=== PATIENT | male | born 1940 | race Caucasian/White ===

== ENCOUNTER → 2019-07-02 10:35 | Day surgery (SDC) | payer MEDICARE, BC ==
[~2019-07-02 10:35] MED LIST: Lidocaine 1% INJ* 10 MG/ML 30 ML SDV ONE; Lidocaine 2.5%/Prilocain 2.5%* 5 GM TUBE ONE
--- NOTE | 2019-07-02 21:24 | PRO ---
THORACENTESIS REPORT: DATE OF PROCEDURE: 07/02/19 - SDS REASON FOR PROCEDURE: Recurrent pleural effusion, left lung. Briefly, a 79-year-old male with a history of systolic CHF EF 45% with pacemaker; history of paroxysmal atrial fibrillation, on Eliquis and digitalis previously. PROCEDURE: Elective left thoracentesis. The patient has had multiple effusions in left and right side which both have been transudative with negative cytology. The patient has had pleurodesis in the right lung. DESCRIPTION OF PROCEDURE: Informed consent was obtained. Benefits and risks of procedure were explained. The patient's left fifth midaxillary intercostal space was prepped and draped in a sterile fashion. The patient was given topical lidocaine. Time-out was performed. Needle was inserted. We did receive some serous fluid. Incision was made with an 11 scalpel. Thoracentesis needle was inserted. The sheath was advanced. We obtained yellowish serous fluid. Later, it was hooked up to the Vacutainer. We received about 1900 cc of serous colored fluid. At the end, there was some bloody fluid that came out. The patient tolerated the procedure well. We terminated the procedure once the patient started having discomfort, indicating increased pleural pressure. Later on, we did a chest x-ray postprocedure, which showed a small subpulmonic air on the left side. The etiology could be procedure related. Etiology could be also possibly a trapped lung; however, unlikely since the effusion was transudative. At this time, I have spoken to the patient and also I have gone to the ER and spoken to the ER attending charge nurse. I have told them right now that the patient should be placed on nonrebreather mask. Chest x-ray should be repeated in 4 hours after the patient is on a high amount of oxygen. With the chest x-ray, if pneumothorax has resolved, then the patient could be discharged home. If the pneumothorax is the same size or bigger, obviously the patient will have to be admitted to the hospital. If the pneumo-thorax is getting bigger, the patient may need a chest tube. If it is the same size, I think the patient should probably be admitted to the hospital overnight with a high amount of oxygen and x-ray should be repeated in the morning. Otherwise, also if the pneumothorax is not going away, then the patient will probably need a CT scan of the chest to further evaluate the pleura. [id number]/[facility] #: [id number] [facility]
== END | disposition home or self-care (01) ==
LOC: OR 10:35
PROVIDERS: ATTEND Internal Medicine
DX: J90 Pleural effusion, not elsewhere classified (principal); I50.9 Heart failure, unspecified; Z95.0 Presence of cardiac pacemaker; I48.0 Paroxysmal atrial fibrillation; Z79.01 Long term (current) use of anticoagulants; Z87.891 Personal history of nicotine dependence; R06.00 Dyspnea, unspecified; R05 Cough; R91.8 Other nonspecific abnormal finding of lung field
CPT/HCPCS: 32554; 71045; 88112; A9270-GY

== ENCOUNTER 2019-07-02 13:08 | Observation (INO) | payer MEDICARE, BC ==
--- OUTSIDE RECORDS SUMMARY | 2019-07-02 13:18 | XMS REPORT | Continuity of Care Document ---
:1940 External Reference #:[id number] Author Name Laci Soto MD (transmitted by agent of provider Madelyn Mendez) Address [address], [address] [place] [address] Problems Description No Information Available Social History Type Date Description Comments Sex Unknown Cigarette Use Pack Years - 02 Tobacco Use Start: Unknown End: Former Cigarette Smoker Unknown 5-10 Cigarettes Daily Smoking Status Reviewed: 06/27/19 Former Cigarette Smoker 5-10 Cigarettes Daily ETOH Use Currently consumes alcohol Tobacco Use Start: Unknown End: Patient is a former Unknown smoker Exercise Does not exercise Due to breathing Type/Frequency issues Allergies, Adverse Reactions, Alerts Description No Known Drug Allergies Medications Active Medications SIG Qnty Indications Ordering Provider Date Eliquis 1 by mouth twice Unknown 5mg Tablets a day Klor-Con 10 1 by mouth every Unknown 10Meq Tablets day ER Lasix 1 by mouth prn Unknown 40mg Tablets Multivitamin Adult 1 po daily Unknown Immunizations Description No Information Available Vital Signs Date Vital Result Comment 06/27/2019 8:56am Height 70 inches 5'10" Weight 154.00 lb Heart Rate 82 /min BP Systolic Sitting 110 mmHg Rue regular cuff BP Diastolic Sitting 50 mmHg Rue regular cuff Respiratory Rate 16 /min O2 % BldC Oximetry 96 % BMI (Body Mass Index) 22.1 kg/m2 Neck Circumference in inches 14.4 Results Description No Information Available Procedures Description No Information Available Medical Devices Description No Information Available Encounters Description No Information Available Assessments Date Code Description Provider 06/27/2019 R06.00 Dyspnea, unspecified Laci Soto MD 06/27/2019 R05 Cough Laci Soto MD 06/27/2019 R91.8 Other nonspecific abnormal finding of lung field Laci Soto MD Plan of Treatment Future Appointment(s):07/04/2019 10:00 am - Dane Anna DO [facility] at [facility]06/27/2019 - Laci Soto, MDR06.00 Dyspnea, unspecifiedNew Xrays:Chest PA & Lat 2 VWS, Ordered: 06/27/19New Orders:PFTW/Spirometry Vol Pre/Post Bronchdilat Dlco Complete, Scheduled: 196 Minute Walk, Ordered: 06/27/19Comments:We will get objective data we will repeat a chest x-ray we will also get 6 minute walk and we will also get full probably function test.R05 QmphyD27.8 Other nonspecific abnormal finding of lung fieldComments: continue to monitor we may need to repeat thoracentesis on the left lung. He may need a pleurodesis on the left lung. Functional Status Description No Information Available Mental Status Description No Information Available Referrals Description No Information Available
--- OUTSIDE RECORDS SUMMARY | 2019-07-02 13:18 | XMS REPORT | Continuity of Care Document ---
:1940 External Reference #:[id number] Author Name Cristin Torres Description No Information Available Social History Type Date Description Comments Sex Unknown Allergies, Adverse Reactions, Alerts Description No Information Available Medications Description No Information Available Immunizations Description No Information Available Vital Signs Description No Information Available Results Description No Information Available Procedures Description No Information Available Medical Devices Description No Information Available Encounters Description No Information Available Assessments Description No Information Available Plan of Treatment Future Appointment(s):07/04/2019 10:00 am - Dane Anna DO [facility] at [facility] Functional Status Description No Information Available Mental Status Description No Information Available Referrals Description No Information Available
--- OUTSIDE RECORDS SUMMARY | 2019-07-02 13:18 | XMS REPORT | Continuity of Care Document ---
:1940 External Reference #:[id number] Author Name Cristin Torres Description No Information [...] am - Dane Anna DO [facility] at [facility] Functional Status Description No Information Available Mental Status Description No Information Available Referrals Description No Information Available
--- OUTSIDE RECORDS SUMMARY | 2019-07-02 13:18 | XMS REPORT | Continuity of Care Document ---
:1940 External Reference #:[id number] Author Name Cristin Torres Description No Information [...] am - Dane Anna DO [facility] at [facility] Functional Status Description No Information Available Mental Status Description No Information Available Referrals Description No Information Available
--- NOTE | 2019-07-02 13:33 | ED ---
HPI Cardiac - HPI Summary HPI Summary: Pt is a 79 y/o M presenting to the ED brought in from the PAC unit. He was having thoracentesis done to drain fluid from his lungs and a CXR showed that he had a PTX, so he was sent here for further evaluation. Pt currently has no complaints, denying CP and SOB. - History of Current Complaint Chief Complaint: EDGeneral Stated Complaint: AIR UNDER LUNG PER PT Time Seen by Provider: 07/02/19 13:11 Hx Obtained From: Patient Onset/Duration: Started Hours Ago, Still Present Timing: Constant, Lasting Hours Initial Severity: Mild Current Severity: None Pain Intensity: 0 Pain Scale Used: 0-10 Numeric Aggravating Factor(s): Other: - thoracentesis Alleviating Factor(s): Nothing Associated Signs and Symptoms: Negative: Chest Pain, Shortness of Breath - Allergy/Home Medications Allergies/Adverse Reactions: Allergies Allergy/AdvReac Type Severity Reaction Status Date / Time No Known Allergies Allergy Verified 07/02/19 13:12 Home Medications: Home Medications Apixaban* [Eliquis*] 5 mg PO BID 07/02/19 [History Confirmed 07/02/19] Furosemide TAB* [Lasix TAB*] 20 mg PO DAILY 07/02/19 [History Confirmed 07/02/19 ] Multivitamins/Minerals TAB* [Theragran/minerals TAB*] 1 tab PO DAILY 07/02/19 [ History Confirmed 07/02/19] Potassium Chlor TAB* [Klor Con ER TAB*] 10 meq PO DAILY 07/02/19 [History Confirmed 07/02/19] PMH/Surg Hx/FS Hx/Imm Hx Previously Healthy: Yes Endocrine/Hematology History: Denies: Hx Diabetes Cardiovascular History: Reports: Hx Pacemaker/ICD - 2018 Denies: Hx Hypertension Respiratory History: Reports: Hx Pleural Effusion Infectious Disease History: No Infectious Disease History: Denies: Traveled Outside the [place] in Last 30 Days - Family History Known Family History: Negative: Diabetes - Social History Alcohol Use: Occasionally Hx Substance Use: No Substance Use Type: Reports: None Hx Tobacco Use: Yes Smoking Status (MU): Former Smoker Review of Systems Negative: Chest Pain Negative: Shortness Of Breath All Other Systems Reviewed And Are Negative: Yes Physical Exam - Summary Physical Exam Summary: Constitutional: Well-developed, Well-nourished, Alert. (-) Distressed Skin: Warm, Dry HENT: Normocephalic; Atraumatic Eyes: Conjunctiva normal Neck: Musculoskeletal ROM normal neck. (-) JVD, (-) Stridor, (-) Tracheal deviation Cardio: Rhythm regular, rate normal, Heart sounds normal; Intact distal pulses; Radial pulses are 2+ and symmetric. (-) Murmur Pulmonary/Chest wall: Pleural friction rub over entire L lung field. (-) Respiratory distress, (-) Wheezes, (-) Rales Abd: Soft, (-) tenderness, (-) Distension, (-) Guarding, (-) Rebound Musculoskeletal: (-) Edema Lymph: (-) Cervical adenopathy Neuro: Alert, Oriented x3 Psych: Mood and affect Normal Triage Information Reviewed: Yes Vital Signs On Initial Exam: Initial Vitals Temp Pulse Resp BP Pulse Ox 97.8 F 85 18 119/92 97 07/02/19 13:10 07/02/19 13:10 07/02/19 13:10 07/02/19 13:10 07/02/19 13:10 Vital Signs Reviewed: Yes Procedures - Sedation Patient Received Moderate/Deep Sedation with Procedure: No Diagnostics - Vital Signs Vital Signs Temp Pulse Resp BP Pulse Ox 07/02/19 13:10 97.8 F 85 18 119/92 97 - Laboratory Lab Statement: Any lab studies that have been ordered have been reviewed, and results considered in the medical decision making process. - Radiology CXR Radiology Interpretation Completed By: Radiologist Summary of Radiographic Findings: Hyperinflated lung price. Overall no changes noted since previous exam of earlier the same day with small left subpulmonic pneumothorax. ED physician has reviewed this report. Re-Evaluation - Re-Evaluation 1st re-eval Re-Evaluation Time: 15:38 Change: Improved Comment: Pt feels much better. He is asymptomatic. Disposition - Course Course Of Treatment: Patient is here with a small left pneumothorax following a thoracentesis. Patient was asymptomatic upon arrival. Patient is given high flow oxygen and had a repeat chest x-ray at 4 hours which showed no change in the pneumothorax. Per plan discussed with pulmonolgist, patient was admitted overnight for further observation - Diagnoses Provider Diagnoses: Pneumothorax, left - Physician Notifications Discussed Care Of Patient With: Marizol Zhang Time Discussed With Above Provider: 17:10 Instructed by Provider To: Admit As Inpatient Discharge ED - Sign-Out/Discharge Documenting (check all that apply): Patient Departure - Discharge Plan Condition: Stable Disposition: ADMITTED TO [facility] Referrals: [facility] [Outside] - Billing Disposition and Condition Condition: STABLE Disposition: Admitted to [facility] - Attestation Statements Document Initiated by Scribe: Yes Documenting Scribe: Mitali Valdes Provider For Whom Scribe is Documenting (Include Credential): Lexa Ocasio MD. Scribe Attestation: Mitali Akhtar, yaniraed for Lexa Ocasio MD. on 07/02/19 at 1859. Scribe Documentation Reviewed: Yes Provider Attestation: The documentation as recorded by the lauroibMitali brasher accurately reflects the service I personally performed and the decisions made by , Lexa Ocasio MD. Status of Scribe Document: Viewed
[2019-07-02] MEDS ORDERED: Acetaminophen TAB* 325 MG PO PRN (18:28)
--- NOTE | 2019-07-02 22:25 | HP ---
CC: Dr. Soto * HISTORY AND PHYSICAL: DATE OF ADMISSION: 07/02/19 PROVIDER: Hermelinda Moody NP. PRIMARY CARE PROVIDER: Dr. Amor Snyder [place], [place]. ATTENDING PHYSICIAN WHILE IN THE HOSPITAL: Dr. Eligio Colvin * (dictated by Hermelinda Moody NP). CHIEF COMPLAINT: Pneumothorax. HISTORY OF PRESENT ILLNESS: Mr. Langston is a 79-year-old male with a past medical history significant for dyspnea, questionable diastolic congestive heart failure with preserved ejection fraction, atrial fibrillation, history of CVA in 2003, who presented to the emergency room after a thoracentesis. The patient had a thoracentesis today with Dr. Soto. Post procedure chest x-ray showed a small left pneumothorax. He was sent to the emergency room for observation and repeat chest x- ray. Repeat chest x-ray at [facility] again showed the small left pneumothorax. So, Hospital Medicine was contacted for admission. The patient reports that he has been getting thoracenteses every 3 to 6 weeks for left pleural effusion of unclear etiology. The patient has been told that his pleural effusion could be likely due to diastolic congestive heart failure. At this time, the patient denies any acute shortness of breath. He does report a chronic loose cough. He denies any fever, chills, unintended weight loss, chest pain or edema. He denies any nausea, vomiting, diarrhea, abdominal pain, hematuria, dysuria, focal weakness or sensory loss. Denies any visual complaints, dysphagia, arthralgias, myalgias, rashes, lesions , open sores, psychosis or anxiety. PAST MEDICAL HISTORY: Significant for: 1. Dyspnea. 2. Diastolic congestive heart failure with preserved ejection fraction. The patient reports ejection fraction of 55% from recent echo in [place]. 3. History of atrial fibrillation. 4. CVA in 2003. PAST SURGICAL HISTORY: 1. Pacemaker, biventricular. 2. Appendectomy. 3. Tonsillectomy. 4. Small bowel resection for obstruction. 5. L4-L5 back surgery. 6. Pleurodesis of the right lung. HOME MEDICATIONS: Include: 1. Potassium 10 mEq p.o. daily. 2. Furosemide 20 mg p.o. daily, he takes p.r.n. 3. Multivitamin. 4. Eliquis 5 mg p.o. b.i.d. ALLERGIES: No known drug allergies. FAMILY HISTORY: Mother with a history of aortic valve disease. No reported history of diabetes or cancer within the family. SOCIAL HISTORY: The patient reports he quit smoking approximately 40 years ago. Prior to that he smoked for approximately 2 years, quarter-pack per day. He does report daily alcohol, 1 to 2 glasses of wine daily with dinner. No illicit drug use. He is , he lives with his . He walks independently without assistive devices. Surrogate decision maker in the event he is unable to make his own decisions is his . He is a full code. REVIEW OF SYSTEMS: A 14-point review of systems was completed. All pertinent positives were mentioned in the HPI. PHYSICAL EXAMINATION GENERAL: Mr. Langston is a 79-year-old male, he is well developed, well nourished , resting on the stretcher in the emergency room. He is in no acute distress. VITAL SIGNS: Blood pressure 106/66, heart rate is 80, respirations are 23, O2 saturation 100%, temperature is 97.8. HEENT: Head is atraumatic, normocephalic. Eyes: EOMs are intact. Sclerae are anicteric and not pale. Oral mucosa appear to be moist. NECK: Supple. LUNGS: Left side with a pleural rub and fine crackles. Right with diminished breath sounds. CARDIAC: S1, S2. Regular rate and rhythm. No rubs or gallops. ABDOMEN: Soft and nontender. Bowel sounds are present x4. EXTREMITIES: He does have 1+ pitting edema to bilateral lower extremities. There is no clubbing or cyanosis. Pedal pulses are +2 bilaterally. Radial pulses are +2 bilaterally. NEUROLOGIC: He is awake, alert, oriented x3. Speech is clear. Thought process is intact. There are no gross focal deficits. SKIN: He does have a Band-Aid that is dry and intact to his left lower ribs and the axillary region. DIAGNOSTIC STUDIES/LAB DATA: There is no laboratory data. He does have a chest x-ray, which showed hyperinflated lung price. Overall no change since previous exam earlier, with small left subpulmonic pneumothorax. ASSESSMENT AND PLAN: Mr. Langston is a 79-year-old male with a past medical history significant for atrial fibrillation, on chronic Eliquis, questionable history of diastolic congestive heart failure with preserved ejection fraction, history of CVA and dyspnea, who presented to the emergency room after a thoracentesis, and post procedure chest x-ray showed pneumothorax. He will be admitted under observation for: 1. Pneumothorax: I will place him on oxygen 6 L nasal cannula. We will monitor him on telemetry overnight. Should the patient develop significantly worsening shortness of breath, we will get a repeat chest x-ray. Otherwise repeat chest x- ray in the a.m. I will get a CBC and BMP in the a.m. 2. Atrial fibrillation: The patient is currently not on any rate control. He has been instructed to resume his Eliquis tomorrow morning as per Dr. Soto, his firmware developer, who did his thoracentesis today. 3. FEN: He can have a heart-healthy diet, caffeine okay. 4. DVT prophylaxis: I will encourage ambulation. The patient is on chronic Eliquis, which he will resume tomorrow. TIME SPENT: Time spent on this admission was 60 minutes, greater than half that time was spent at the bedside reviewing the events leading thus far to his hospitalization, performing physical exam, and reviewing my plan of care. I have discussed this with my attending, Dr. Eligio Colvin, he is in agreement with my plan. HERMELINDA MOODY, JAIRO [id number]/[facility] #: [id number] MTDMalini
[2019-07-03 06:55] LABS: ABS Basophils 0.1 10^3/ul (0-0.2); ABS Eosinophils 0.2 10^3/ul (0-0.6); ABS Lymphocytes 0.4 10^3/ul (1.0-4.8); ABS Monocytes 0.7 10^3/ul (0-0.8); ABS Neutrophils 3.6 10^3/ul (1.5-7.7); Eosinophil % 3.7 %; Hematocrit 43 % (42-52); Hemoglobin 14.5 g/dL (14.0-18.0); Mean Corpuscular HGB Conc 34 g/dL (31-36); Mean Corpuscular Hemoglobin 31 pg (27-31); Mean Corpuscular Volume 90 fL (80-94); Mean Platelet Volume 7.4 fL (7.4-10.4); Nucleated Red Blood Cells % 0.1; Platelet Count 205 10^3/uL (150-450); Red Blood Count 4.74 10^6 /uL (4.18-5.48); Red Cell Distribution Width 16 % (10-15); White Blood Count 4.9 10^3/uL (3.5-10.8)
[2019-07-03 07:10] LABS: BUN/Creatinine Ratio 17.1 (8-20); Calcium 8.4 mg/dL (8.6-10.3); EGFR Non-African American 99.2 (>60); Potassium 4.4 mmol/L (3.5-5.0)
[2019-07-03] MEDS ORDERED: Furosemide TAB* 20 MG PO SCH (09:00)
[2019-07-03] MEDS ORDERED: Multivitamins/Minerals TAB PO SCH (09:00)
[2019-07-03] MEDS ORDERED: Potassium Chlor TAB* 10 MEQ TAB.ER PO SCH (09:00)
[2019-07-03] MEDS ORDERED: Apixaban* 5 MG TAB PO SCH (09:00)
[2019-07-03 10:43] VITALS: BP 92/65
--- NOTE | 2019-07-03 11:48 | PN ---
Subjective Date of Service: 07/03/19 Interval History: HD 2 on 07/03 No complaint at present. No SOB, chest pain or dizziness. On 8L of nasal canula Objective Active Medications: Acetaminophen (Tylenol Tab*) 650 mg PO Q4H PRN PRN Reason: MILD PAIN or TEMP > 100.4 Apixaban (Eliquis*) 5 mg PO BID [facility] Last Admin: 07/03/19 09:30 Dose: 5 mg Furosemide (Lasix Tab*) 20 mg PO DAILY [facility] Last Admin: 07/03/19 09:29 Dose: Not Given Multivitamins/Minerals (Theragran/Minerals Tab*) 1 tab PO DAILY [facility] Last Admin: 07/03/19 09:30 Dose: 1 tab Potassium Chloride (Klor Con Er Tab*) 10 meq PO DAILY [facility] Last Admin: 07/03/19 09:30 Dose: Not Given Vital Signs - 8 hr 07/03/19 07:10 Temperature 97.3 F Pulse Rate 81 Respiratory 16 Rate Blood Pressure 92/65 (mmHg) O2 Sat by Pulse 100 Oximetry Oxygen Devices in Use Now: Nasal Cannula Exam: Patient is sitting in a bed with nasal canula. HEENT: normocephalic and atraumatic. Lungs: Pleural rub heard with no added sound Heart: S1/S2 heard with no murmur Abdomen: Soft, nondistended and nontender. Normal BS heard Extremities: No swelling Neuro: alert, conscious and oriented Result Diagrams: 07/03/19 05:44 07/03/19 05:44 Assess/Plan/Problems-Billing Assessment: 79 y/o M with history of Pleural Effusion(unclear etiology), AF(on eliquis), CVA presented with Iatrogenic Pneumothorax. On observation with oxygen - Patient Problems (1) Pneumothorax, iatrogenic Status: Acute Code(s): J95.811 - POSTPROCEDURAL PNEUMOTHORAX SNOMED Code(s) : 116025198 Comment: -Iatrogenic- after thoracentesis -Asymptomatic -CXR done in AM- no worsening of pneumothorax -On supplemental oxygen (2) Atrial fibrillation Status: Acute Code(s): I48.91 - UNSPECIFIED ATRIAL FIBRILLATION SNOMED Code( s): 25929513 Comment: -On eliquis-started this morning (3) DVT prophylaxis Status: Acute Code(s): Z29.9 - ENCOUNTER FOR PROPHYLACTIC MEASURES, UNSPECIFIED SNOMED Code(s): 753002658 Comment: -on eliquis (4) Full code status Status: Acute Code(s): Z78.9 - OTHER SPECIFIED HEALTH STATUS SNOMED Code(s) : 570568448 Status and Disposition: Observation dc today Attending: Eligio Colvin Attestation Documenting Resident: [employer] Supervising Physician: Srinath Colvin Attestation: This service has been performed in part by a resident under the direction of a teaching physician.I, Srinath Colvin, performed the service, or was physically present during the critical, or wilkes portions of the service, furnished by the resident. I participated in the management of the patient.
--- NOTE | 2019-07-04 08:58 | DS ---
CC: Dr. Soto, [facility] Pulmonology; Dr. Amor Snyder [place], [place] DISCHARGE SUMMARY: DATE OF ADMISSION: 07/02/19 DATE OF DISCHARGE: 07/03/19 PRIMARY DIAGNOSIS: Iatrogenic subpulmonic pneumothorax on the left side. SECONDARY DIAGNOSES: 1. Recurrent bilateral pleural effusions, status post pleurodesis of the right side. Pleural effusi ons are thought to be due to diastolic congestive heart failure as they are transudative. 2. Also includes history of atrial fibrillation. 3. Diastolic congestive heart failure. 4. Stroke in 2003. 5. Biventricular pacemaker placement. MEDICATIONS ON DISCHARGE: 1. Eliquis 5 mg p.o. b.i.d. 2. Furosemide 20 mg p.o. q.a.m. 3. Multivitamin 1 tab p.o. daily. 4. Potassium chloride 10 mEq p.o. daily. 5. Acetaminophen 650 mg p.o. q.4 hours as needed for pain and fever. HOSPITAL COURSE: The patient is a 79-year-old male who was admitted from the emergency department. Earlier in the day, he had had a planned left thoracentesis due to recurrent pleural effusions throug h the radiology department. The small subpulmonic pneumothorax was noted on post-procedure chest x-r ays. Repeat chest x- ray in the emergency department showed no growth of the pneumothorax. The jonathon ent was admitted and placed on 6 L per minute of oxygen by nasal cannula. He had no chest pain or ot her complaints. His CBC was normal and electrolyte panel notable for sodium of 134, calcium 8.4. Ot herwise, normal. The patient spent the night in the hospital with oxygen therapy. Repeat chest x-ra y on the morning of discharge showed the beginnings of recurrence of the left-sided pleural effusion and small subpulmonic pneumothorax that has not enlarged in almost 24 hours. The patient was stable for discharge. DISPOSITION: To home. ACTIVITY: As tolerated. DIET: Regular. STATUS: Observation. CONDITION: Stable. FOLLOWUP: Followup should be with Dr. Soto in [place] within the next 2 weeks prior to the patient r eturning to [place]. The patient will also see his primary care when he goes back to [facility]. [id number]/[facility] #: [id number]
== END 2019-07-03 12:05 | disposition home or self-care (01) ==
LOC: ED 13:08 → MED 18:28
PROVIDERS: ADMIT Internal Medicine; ATTEND Internal Medicine
DX: J95.811 Postprocedural pneumothorax (principal); J90 Pleural effusion, not elsewhere classified; I50.30 Unspecified diastolic (congestive) heart failure; Z79.01 Long term (current) use of anticoagulants; Z79.899 Other long term (current) drug therapy; Z86.73 Personal history of transient ischemic attack (TIA), and cerebral infarction without residual deficits; I48.91 Unspecified atrial fibrillation; Z95.0 Presence of cardiac pacemaker; Z87.891 Personal history of nicotine dependence
CPT/HCPCS: 32554; 36415; 71045; 71046; 80048; 85025; 88112; 99284; A9270-GY; G0378